=== PATIENT | male | born 1990 | race Two or more races ===

== ENCOUNTER 2018-07-30 04:17 | Emergency (ER) | payer MEDICAID ==
--- NOTE | 2018-07-30 06:06 | ER Document Report ---
ED General - General Chief Complaint: Cardiac Arrest Stated Complaint: RESPIRATORY DISTRESS Time Seen by Provider: 07/30/18 05:56 Mode of Arrival: Ambulatory Information source: Parent, Emergency Med Personnel Cannot obtain history due to: Other Notes: 28-year-old male with reported neuropathy presents via EMS in cardiac arrest. Per the parents the patient came to their door at 3 AM and collapsed. EMS reports that they did not arrive to the house until 4 AM. They reported respiratory arrest upon arrival with pulses present. Upon arrival to the emergency department patient was pulseless, pupils were fixed and dilated, patient banks in color. Parents deny any recent illness, drug use. TRAVEL OUTSIDE OF THE [place] IN LAST 30 DAYS: No - HPI Onset: Just prior to arrival Onset/Duration: Sudden Similar symptoms previously: No Recently seen / treated by doctor: No - Related Data Allergies/Adverse Reactions: No Known Allergies Allergy (Unverified 03/10/14 04:08) Past Medical History - General Information source: Parent, Emergency Med Personnel - Social History Smoking Status: Never Smoker Frequency of alcohol use: None Drug Abuse: None Lives with: Family Family History: None - Medical History Medical History: Other - Neuropathy - Immunizations Hx Diphtheria, Pertussis, Tetanus Vaccination: Yes Review of Systems - Review of Systems -: Yes ROS unobtainable due to patient's medical condition Physical Exam - Vital signs Vitals: Temp 96 F L 07/30/18 04:20 - Notes Notes: PHYSICAL EXAMINATION: GENERAL: Unresponsive, banks in color, pulseless HEAD: Atraumatic, normocephalic. EYES: Pupils fixed and dilated ENT: No epistaxis LUNGS: No spontaneous respirations. Bilateral breath sounds with bagging. HEART: No cardiac activity, pulseless ABDOMEN: Soft, nontender, nondistended abdomen. Musculoskeletal: No spontaneous movement. Feet and hands were banks in color. Nailbeds cyanotic NEUROLOGICAL: GCS 3 SKIN: Cyanotic, ashen - General General appearance: Unresponsive - HEENT Head: Normocephalic, Atraumatic Pupils: Dilated, Fixed - Respiratory Respiratory status: Cyanosis, Other - Respiratory arrest Breath sounds: Other - Bilateral breath sounds with bagging only. Chest palpation: No: Ecchymosis - Cardiovascular Rhythm: Other - PEA Pulses: Absent: Carotid, Femoral Normal capillary refill: No - Abdominal Inspection: Normal - Neurological Ophiem Coma Scale Eye Opening: None O[place] Coma Scale Verbal: None Ophi[place] Coma Scale Motor: None O[place] Coma Scale Total: 3 - Skin Skin Temperature: Cold Skin Color: Dusky, Cyanotic Course - Re-evaluation Re-evalutation: 07/30/18 22:00 28-year-old male presents via EMS in cardiac arrest. EMS reported that the patient was found in respiratory arrest with pulses present at 4 AM. Upon their arrival patient was pulseless, pupils were fixed and dilated. Patient's color was banks and there were obvious signs of cyanosis around his mouth and nailbeds. Multiple rounds of ACLS were performed. 5 mg of epinephrine were given, 1 amp of calcium gluconate and 1 amp of sodium bicarb were also given. After every pulse check patient was found to be in PEA. Parents were brought into the room and it was explained to them that the patient had no chance of survival at this point. Bedside ultrasound was performed at final pulse check and showed no cardiac activity. Patient at 4:34 AM - Vital Signs Vital signs: Temp Pulse Resp BP Pulse Ox 96 F L 07/30/18 04:20 Critical Care Note - Critical Care Note Total time excluding time spent on procedures (mins): 45 - minutes of critical care time spent in direct contact evaluating and reevaluating the patient, treating symptoms, reviewing labs and studies and speaking with family and consultants excluding any procedures Discharge - Discharge Clinical Impression: Cardiac arrest Disposition: Referrals: REKHA RODRIGUEZ MD [Primary Care Provider] - Follow up as needed
[2018-07-30] MEDS ORDERED: EPINEPHRINE INJ 1 MG/10 ML DISP.SYRIN ONE (14:41)
[2018-07-30] MEDS ORDERED: SODIUM BICARBONATE 8.4% INJ 50 MEQ/50 ML DISP.SYRIN ONE (14:41)
== END 2018-07-30 08:00 | disposition expired ==
LOC: ER 04:17
DX: I46.9 Cardiac arrest, cause unspecified (principal)
CPT/HCPCS: 99291; 92950; 96374; 82962; J0171; J3490